=== PATIENT | male | born 1995 | race American Indian/Alaskan Native ===

== ENCOUNTER 2020-10-16 15:35 | Emergency (ER) | payer SELFPAY ==
[2020-10-16 15:52] VITALS: BP 134/82
[2020-10-16] MEDS ORDERED: LIDOCAINE-MPF (1%) 10 MG/1 ML VIAL 5 ML INFILTRATI ONE (18:01)
--- NOTE | 2020-10-16 18:04 | Emergency Department Report ---
Abscess Boil HPI - HPI Chief Complaint: Skin/Abscess/Foreign Body Stated Complaint: FACIAL SWELLING Time Seen by Provider: 10/16/20 18:00 Duration: 4 Days Location: Other (corner of right eye) History: Yes Pain, Yes Purulent Drainage HPI: 25-year-old male presents to the ER today complaining of a tender painful area to the corner of his right eye. Patient states that it started about 4 days ago. He states that it has been increasing in size, and more painful. He states that last night his eye was swollen shut but the area started to drain last night, and this morning he noticed improvement of the swelling around the eye. He reports pus drainage as well as blood from the area. He denies any pain with eyeball movement. He denies any drainage from the eye or any redness from inside the eye. He denies any fever or chills. He reports similar symptoms to his face in the past. Home Medications: Previous Rx's Medication Instructions Recorded Last Taken Type Ibuprofen [Motrin] 800 mg PO Q8HR PRN #30 tablet 10/16/20 Unknown Rx Sulfamethoxazole/Trimethoprim 1 each PO BID #14 tablet 10/16/20 Unknown Rx [Bactrim DS TAB] cephALEXin [Keflex] 500 mg PO Q8HR #21 cap 10/16/20 Unknown Rx Allergies/Adverse Reactions: Allergies Allergy/AdvReac Type Severity Reaction Status Date / Time No Known Allergies Allergy Unverified 10/16/20 15:48 ED Review of Systems ROS: Stated complaint: FACIAL SWELLING Other details as noted in HPI Comment: All other systems reviewed and negative Eyes: denies: eye pain, eye discharge, vision change Skin: rash, lesions ED Past Medical Hx - Past Medical History Previous Medical History?: No - Surgical History Additional Surgical History: T/A - Social History Smoking Status: Never Smoker Substance Use Type: None - Medications Home Medications: Home Medications Medication Instructions Recorded Confirmed Last Taken Type Ibuprofen [Motrin] 800 mg PO Q8HR PRN #30 tablet 10/16/20 Unknown Rx Sulfamethoxazole/Trimethoprim 1 each PO BID #14 tablet 10/16/20 Unknown Rx [Bactrim DS TAB] cephALEXin [Keflex] 500 mg PO Q8HR #21 cap 10/16/20 Unknown Rx ED Abscess Boil Physical Exam - Exam General: Vital signs noted. No distress. Alert and acting appropriately. Small erythematous, fluctuant area which appears to be draining and measuring about 1 cm x 2 cm noted to the corner of the right eye; there is mild swelling as well as mild cellulitis extending to the periorbital region of the right eye. Extraocular movement is intact without any pain. Conjunctiva is normal. No drainage from the eye. Pupils equally round and reactive to light. Exam: Yes Tenderness, Yes Fluctuance, Yes Surrounding Cellulites/Erythema, Yes Normal Neurologic Exam, Yes Normal Circulation, No Crepitation, No Heart Murmur ED Course Vital Signs 10/16/20 15:52 Temperature 98.2 F Pulse Rate 86 Respiratory 22 Rate Blood Pressure 134/82 O2 Sat by Pulse 98 Oximetry Critical care attestation.: If time is entered above; I have spent that time in minutes in the direct care of this critically ill patient, excluding procedure time. ED Medical Decision Making - Medical Decision Making Patient with a small abscess to the corner of the right thigh. He does have some mild periorbital cellulitis with some mild swelling, but but no concern for orbital cellulitis as he has full movement of his eyeball without any pain. Is afebrile, not toxic and he is well-appearing. He is not in any acute distress. Areas already draining, and therefore no indication for I&D at this time. IM Rocephin given here in the ER, and he will be discharged home with oral antibiotics. Patient understands to return if his symptoms worsens or changes in any way. ED Disposition Clinical Impression: Abscess, Periorbital cellulitis of right eye Disposition: DC-01 TO HOME OR SELFCARE Is pt being admited?: No Does the pt Need Aspirin: No Condition: Stable Instructions: Skin Abscess, [id number], Preseptal Cellulitis, Adult Additional Instructions: I recommend you start taking antibiotics as prescribed as soon as you get it filled and take it to completion. You can apply warm compresses to the area 2-3 times a day. Take the pain medication that was prescribed to you as directed. Return immediately to the ER if the swelling of the redness becomes worse or if you have pain with movement of your eyeball, fever or chills. Prescriptions: Sulfamethoxazole/Trimethoprim [Bactrim DS TAB] 1 each PO BID #14 tablet cephALEXin [Keflex] 500 mg PO Q8HR #21 cap Ibuprofen [Motrin] 800 mg PO Q8HR PRN #30 tablet PRN Reason: Pain , Severe (7-10) Referrals: KARRI TORO MD [Staff Physician] - 3-5 Days Time of Disposition: 18:11
== END 2020-10-16 19:41 | disposition home or self-care (01) ==
LOC: ED 15:35
DX: L03.213 Periorbital cellulitis (principal); L02.91 Cutaneous abscess, unspecified; Z79.899 Other long term (current) drug therapy
CPT/HCPCS: 96372; 99282; J0696

== ENCOUNTER 2020-11-18 08:46 | Emergency (ER) | payer SELFPAY ==
--- NOTE | 2020-11-18 08:56 | Emergency Department Report ---
ED ENT HPI - General Chief complaint: Sore Throat Stated complaint: THROAT SWELLING Time Seen by Provider: 11/18/20 08:50 Source: patient Mode of arrival: Ambulatory Limitations: No Limitations - History of Present Illness Initial comments: Patient is a 25-year-old male who presents to ED with of throat pain 2 days. Patient describes pain as throbbing in nature, 8 out of 10 intensity, nonradiating, localized to his throat. Patient states that he is girlfriend tested positive for strep throat and got penicillin shot yesterday. 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 admits pain with swallowing and eating. Patient admits no appetite due to throat pain. Patient denies nausea/vomiting/abdominal pain/shortness of breath/chest pain/headache. MD complaint: sore throat - Related Data Previous Rx's Medication Instructions Recorded Last Taken Type Ibuprofen [Motrin] 800 mg PO Q8HR PRN #30 tablet 10/16/20 Unknown Rx Sulfamethoxazole/Trimethoprim 1 each PO BID #14 tablet 10/16/20 Unknown Rx [Bactrim DS TAB] cephALEXin [Keflex] 500 mg PO Q8HR #21 cap 10/16/20 Unknown Rx Amoxicillin [Trimox CAP] 500 mg PO Q8H #21 capsule 11/18/20 Unknown Rx Nystas/Diphen/Xyl Visc/Mylanta 15 ml MM Q6H PRN #120 ml 11/18/20 Unknown Rx [Magic Mouthwash] Allergies Allergy/AdvReac Type Severity Reaction Status Date / Time No Known Allergies Allergy Verified 11/18/20 08:47 ED Dental HPI - General Chief complaint: Sore Throat Stated complaint: THROAT SWELLING Time Seen by Provider: 11/18/20 08:50 Source: patient Mode of arrival: Ambulatory Limitations: No Limitations - Related Data Previous Rx's Medication Instructions Recorded Last Taken Type Ibuprofen [Motrin] 800 mg PO Q8HR PRN #30 tablet 10/16/20 Unknown Rx Sulfamethoxazole/Trimethoprim 1 each PO BID #14 tablet 10/16/20 Unknown Rx [Bactrim DS TAB] cephALEXin [Keflex] 500 mg PO Q8HR #21 cap 10/16/20 Unknown Rx Amoxicillin [Trimox CAP] 500 mg PO Q8H #21 capsule 11/18/20 Unknown Rx Nystas/Diphen/Xyl Visc/Mylanta 15 ml MM Q6H PRN #120 ml 11/18/20 Unknown Rx [Magic Mouthwash] Allergies Allergy/AdvReac Type Severity Reaction Status Date / Time No Known Allergies Allergy Verified 11/18/20 08:47 ED Review of Systems ROS: Stated complaint: THROAT SWELLING Other details as noted in HPI Comment: All other systems reviewed and negative ED Past Medical Hx - Past Medical History Previous Medical History?: No - Surgical History Past Surgical History?: Yes Additional Surgical History: T/A - Social History Smoking Status: Never Smoker Substance Use Type: Alcohol - Medications Home Medications: Home Medications Medication Instructions Recorded Confirmed Last Taken Type Ibuprofen [Motrin] 800 mg PO Q8HR PRN #30 tablet 10/16/20 Unknown Rx Sulfamethoxazole/Trimethoprim 1 each PO BID #14 tablet 10/16/20 Unknown Rx [Bactrim DS TAB] cephALEXin [Keflex] 500 mg PO Q8HR #21 cap 10/16/20 Unknown Rx Amoxicillin [Trimox CAP] 500 mg PO Q8H #21 capsule 11/18/20 Unknown Rx Nystas/Diphen/Xyl Visc/Mylanta 15 ml MM Q6H PRN #120 ml 11/18/20 Unknown Rx [Magic Mouthwash] ED Physical Exam - General Limitations: No Limitations General appearance: alert, in no apparent distress - Head Head exam: Present: atraumatic, normocephalic - Eye Eye exam: Present: normal appearance Pupils: Present: normal accommodation - Expanded ENT Exam Expanded Mouth exam: Present: normal external inspection Throat exam: Positive: other (Pharyngeal erythematous and swelling, tonsil missing bilaterally) - Neck Neck exam: Present: normal inspection, lymphadenopathy ED Course Vital Signs 11/18/20 08:47 Temperature 98.6 F Pulse Rate 88 Respiratory 20 Rate Blood Pressure 144/96 O2 Sat by Pulse 98 Oximetry ED Medical Decision Making - Medical Decision Making This 25-year-old who presents with pharyngitis Clinical diagnosis strep as well as positive contact with strep We will treat patient with antibiotics and Magic mouthwash. I discussed with patient strep is contagious and to monitor to wound me comes in contact with. Discussed to take medication thoroughly and completed. I discussed follow-up with primary care physician. Discussed with patient if he has any worsening symptoms he may return to the ED immediately. Vital signs are normal he had no respiratory discharge throughout ED stay Critical care attestation.: If time is entered above; I have spent that time in minutes in the direct care of this critically ill patient, excluding procedure time. ED Disposition Clinical Impression: Pharyngitis, Strep throat exposure Disposition: - TO HOME OR SELFCARE Is pt being admited?: No Does the pt Need Aspirin: No Condition: Stable Instructions: Pharyngitis, [id number], Strep Throat, Adult Additional Instructions: Make sure to follow up with the primary care physician as discussed. Take all your medications as you've been prescribed. If you have any worsening symptoms or develop new symptoms please return to ED immediately. Referrals: PRIMARY CARE, [Primary Care Provider] - 3-5 Days [facility] [Outside] - 3-5 Days Forms: Work/School Release Form(ED) Time of Disposition: 08:57
[2020-11-18 08:58] VITALS: BP 144/96
== END 2020-11-18 09:00 | disposition home or self-care (01) ==
LOC: ED 08:46
DX: J02.9 Acute pharyngitis, unspecified (principal); Z79.899 Other long term (current) drug therapy
CPT/HCPCS: 99282

== ENCOUNTER 2021-07-22 16:58 | Emergency (ER) | payer SELFPAY ==
[2021-07-22 17:16] VITALS: BP 150/91
--- NOTE | 2021-07-22 18:34 | Emergency Department Report ---
ED ENT HPI - General Chief complaint: Sore Throat Stated complaint: POSS PINK EYE COLD FLU SYMPTOMS Time Seen by Provider: 07/22/21 18:03 Source: patient Mode of arrival: Ambulatory Limitations: No Limitations - History of Present Illness Initial comments: The patient was evaluated in the emergency department for symptoms described in the history of present illness. He/she was evaluated in the context of the global COVID-19 pandemic, which necessitated consideration that the patient might be at risk for infection with the virus that causes COVID-19. Institutional protocols and algorithms that pertain to the evaluation of patients at risk for COVID-19 are in a state of rapid change based on information released by regulatory bodies including the CDC and federal and state organizations. These policies and algorithms were followed during the patient's care in the emergency department. Please note that these policies, procedures and recommendations changed on a rapid basis. 26-year-old -[place] male presents to the emergency room complaining of concern for possible left pinkeye and flulike symptoms. Patient reports he has a sore throat nasal congestion and sneezing. States has been going on for 1 day has taken DayQuil and NyQuil for 1 day. States his left eye has been draining yellowish drainage does not itch no concerns for any foreign body that is not painful. He is not vaccinated has not had a Covid test in 2 months. He has not taken anything for his pain in his throat. MD complaint: sore throat Onset/Timin -: days(s) Location: throat Severity: mild Severity scale (0 -10): 2 Consistency: intermittent Improves with: none Associated Symptoms: sore throat, rhinorrhea. denies: fever, cough - Related Data Previous Rx's Medication Instructions Recorded Last Taken Type Ibuprofen [Motrin] 800 mg PO Q8HR PRN #30 tablet 10/16/20 Unknown Rx Sulfamethoxazole/Trimethoprim 1 each PO BID #14 tablet 10/16/20 Unknown Rx [Bactrim DS TAB] cephALEXin [Keflex] 500 mg PO Q8HR #21 cap 10/16/20 Unknown Rx Amoxicillin [Trimox CAP] 500 mg PO Q8H #21 capsule 11/18/20 Unknown Rx Nystas/Diphen/Xyl Visc/Mylanta 15 ml MM Q6H PRN #120 ml 11/18/20 Unknown Rx [Magic Mouthwash] Erythromycin [Erythromycin Ophth 1 strip OU QID #1 tube 07/22/21 Unknown Rx Oint] Allergies Allergy/AdvReac Type Severity Reaction Status Date / Time No Known Allergies Allergy Verified 07/22/21 17:11 ED Dental HPI - General Chief complaint: Sore Throat Stated complaint: POSS PINK EYE COLD FLU SYMPTOMS Time Seen by Provider: 07/22/21 18:03 Source: patient Mode of arrival: Ambulatory Limitations: No Limitations - Related Data Previous Rx's Medication Instructions Recorded Last Taken Type Ibuprofen [Motrin] 800 mg PO Q8HR PRN #30 tablet 10/16/20 Unknown Rx Sulfamethoxazole/Trimethoprim 1 each PO BID #14 tablet 10/16/20 Unknown Rx [Bactrim DS TAB] cephALEXin [Keflex] 500 mg PO Q8HR #21 cap 10/16/20 Unknown Rx Amoxicillin [Trimox CAP] 500 mg PO Q8H #21 capsule 11/18/20 Unknown Rx Nystas/Diphen/Xyl Visc/Mylanta 15 ml MM Q6H PRN #120 ml 11/18/20 Unknown Rx [Magic Mouthwash] Erythromycin [Erythromycin Ophth 1 strip OU QID #1 tube 07/22/21 Unknown Rx Oint] Allergies Allergy/AdvReac Type Severity Reaction Status Date / Time No Known Allergies Allergy Verified 07/22/21 17:11 ED Review of Systems ROS: Stated complaint: POSS PINK EYE COLD FLU SYMPTOMS Other details as noted in HPI Comment: All other systems reviewed and negative ED Past Medical Hx - Past Medical History Previous Medical History?: No - Surgical History Additional Surgical History: T/A - Social History Substance Use Type: None - Medications Home Medications: Home Medications Medication Instructions Recorded Confirmed Last Taken Type Ibuprofen [Motrin] 800 mg PO Q8HR PRN #30 tablet 10/16/20 Unknown Rx Sulfamethoxazole/Trimethoprim 1 each PO BID #14 tablet 10/16/20 Unknown Rx [Bactrim DS TAB] cephALEXin [Keflex] 500 mg PO Q8HR #21 cap 10/16/20 Unknown Rx Amoxicillin [Trimox CAP] 500 mg PO Q8H #21 capsule 11/18/20 Unknown Rx Nystas/Diphen/Xyl Visc/Mylanta 15 ml MM Q6H PRN #120 ml 11/18/20 Unknown Rx [Magic Mouthwash] Erythromycin [Erythromycin Ophth 1 strip OU QID #1 tube 07/22/21 Unknown Rx Oint] ED Physical Exam - General Limitations: No Limitations General appearance: alert, in no apparent distress - Head Head exam: Present: atraumatic, normocephalic - Eye Eye exam: Present: PERRL, EOMI, conjunctival injection. Absent: scleral icterus, nystagmus, periorbital swelling, periorbital tenderness - ENT ENT exam: Present: normal orophraynx, mucous membranes moist, normal external ear exam - Neck Neck exam: Present: normal inspection, full ROM. Absent: lymphadenopathy - Respiratory Respiratory exam: Present: normal lung sounds bilaterally. Absent: respiratory distress - Cardiovascular Cardiovascular Exam: Present: regular rate, normal rhythm. Absent: systolic murmur, diastolic murmur, rubs, gallop - GI/Abdominal GI/Abdominal exam: Present: soft, normal bowel sounds - Rectal Rectal exam: Present: deferred - Extremities Exam Extremities exam: Present: normal inspection - Back Exam Back exam: Present: normal inspection - Neurological Exam Neurological exam: Present: alert, oriented X3, normal gait - Psychiatric Psychiatric exam: Present: normal affect, normal mood - Skin Skin exam: Present: warm, dry, intact, normal color. Absent: rash ED Course Vital Signs 07/22/21 17:14 Temperature 98.6 F Pulse Rate 83 Respiratory 20 Rate Blood Pressure 150/91 O2 Sat by Pulse 97 Oximetry ED Medical Decision Making - Medical Decision Making 26-year-old -Al[place] male presents to the emergency room complaining of concern for possible left pinkeye and flulike symptoms. Patient reports he has a sore throat nasal congestion and sneezing. States has been going on for 1 day has taken DayQuil and NyQuil for 1 day. States his left eye has been draining yellowish drainage does not itch no concerns for any foreign body that is not painful. He is not vaccinated has not had a Covid test in 2 months. He has not taken anything for his pain in his throat. Recommend Tylenol ibuprofen use a erythromycin ophthalmic ointment to your left eye. Go get Covid testing. yrte's. Critical care attestation.: If time is entered above; I have spent that time in minutes in the direct care of this critically ill patient, excluding procedure time. ED Disposition Clinical Impression: Conjunctivitis, Sore throat (viral), Suspected COVID-19 virus infection Disposition: HOME / SELF CARE / HOMELESS Is pt being admited?: No Does the pt Need Aspirin: No Condition: Stable Instructions: Viral Respiratory Infection, [id number], Sore Throat, [id number], Bacterial Conjunctivitis, Adult, [id number] Additional Instructions: Your symptoms appear most consistent with a nonspecific viral syndrome. However, given this current pandemic, COVID-19 is in the differential of possibilities. Despite your previous negative COVID-19 test, I do recommend repeat outpatient Covid 19 testing. In the meantime, isolate/quarantine yourself and stay away from anyone who is elderly, immunocompromised or chronically ill. You can use ibuprofen every 6-8 hours and Tylenol every 4-8 hours, using the dosing on the back of the bottle, as needed for any fever or body aches. Return to the emergency department with any worsening of your symptoms, development of chest pain or shortness of breath, or with any acute distress. Use eye ointment as prescribed. Prescriptions: Erythromycin [Erythromycin Ophth Oint] 1 strip OU QID #1 tube Referrals: PRIMARY CARE, [Primary Care Provider] - 3-5 Days Forms: Work/School Release Form(ED) Time of Disposition: 18:29
== END 2021-07-22 18:57 | disposition home or self-care (01) ==
LOC: ED 16:58
DX: H10.9 Unspecified conjunctivitis (principal); J02.8 Acute pharyngitis due to other specified organisms; B97.89 Other viral agents as the cause of diseases classified elsewhere; Z79.899 Other long term (current) drug therapy
CPT/HCPCS: 99281